=== PATIENT | female | born 1980 | race Caucasian/White ===

== ENCOUNTER → 2016-06-03 | Outpatient (CLI) | payer OTHER ==
[2016-06-03 17:53] LABS: MEAN CORPUSCULAR HEMOGLOBIN 31.9 pg (27.0-33.0); MEAN CORPUSCULAR HGB CONC 32.5 g/dl (32.0-36.5); MEAN CORPUSCULAR VOLUME 98.3 fl (80.0-96.0); PLATELET COUNT, AUTOMATED 166 k/mm3 (150-450); RED CELL DISTRIBUTION WIDTH 12.1 % (11.5-14.5)
[2016-06-03 21:12] LABS: BASOPHILS 1 % (0-4); EOSINOPHILS 7 % (0-5)
[2016-06-04 12:56] LABS: CONTROL LINE INT CTR LINE PRESENT; HIV SCRN NEGATIVE (NEGATIVE); HIV SCRN1 NEGATIVE (NEGATIVE)
[2016-06-05 10:16] LABS: HBsAg Prenatal NEGATIVE (NEGATIVE)
== END ==
LOC: M LRY 12:06
PROVIDERS: ATTEND Obstetrics & Gynecology
DX: Z34.81 Encounter for supervision of other normal pregnancy, first trimester (principal)

== ENCOUNTER → 2016-08-02 | Outpatient (CLI) | payer OTHER ==
[2016-08-02 17:46] LABS: CALCIUM LEVEL 8.2 MG/DL (8.5-10.1); THYROXINE (T4) 13.4 UG/DL (4.5-12.0)
== END ==
LOC: M LRY 11:33
PROVIDERS: ATTEND Advanced Practice Midwife
DX: O99.842 Bariatric surgery status complicating pregnancy, second trimester (principal); E03.9 Hypothyroidism, unspecified; Z13.79 Encounter for other screening for genetic and chromosomal anomalies; Z3A.00 Weeks of gestation of pregnancy not specified

== ENCOUNTER → 2016-08-13 | Outpatient (CLI) | payer OTHER ==
--- NOTE | 2016-08-13 17:01 | REP ---
Clinical: Anatomical evaluation. Comparison: None . Findings: Examination demonstrates a single live intrauterine in cephalic presentation. motion is identified by technologist. Placenta is noted anterior and grade with the zero without evidence for placenta previa or abruption. Amniotic fluid volume is normal. Cervix measures 4.5 cm in length and appears closed. No evidence for nuchal cord. Gestational age by LMP 19 weeks 2 days with DINORAH 01/05/2017 . Gestational age by current measurements 20 weeks 0 days with DINORAH 12/31/2016 . FHR equals 150 beats per minute. BPD 4.7 cm 20 weeks 2 days HC 17.0 cm 19 weeks 4 days AC 14.9 cm 20 weeks 1 day FL 3.2 cm 19 weeks 6 days HL 3.1 cm 20 weeks 2 days HC/AC ratio 1.14 Estimated weight 324 grams ( 72nd percentile). Anatomical assessment demonstrates normal structures including cranium, cavum, cerebellum/posterior fossa, facial features, lungs, four-chamber heart/ventricular outflow tracts, diaphragm, stomach, cord insertion/three-vessel cord, kidneys/bladder, spine, and extremities. A 2 mm left choroid plexus cyst identified along with echogenic focus in the left cardiac ventricle consistent with prominent chordae tendineae. Impression: 1. Single live intrauterine in cephalic presentation demonstrating appropriate interval growth. 2. Choroid plexus cyst and prominent chordae tendineae suggested and may warrant reevaluation and follow-up. Anatomical assessment is otherwise complete and normal. Signed by Mono Kay MD 08/13/2016 04:53 P
== END ==
LOC: M RAD 15:44
PROVIDERS: ATTEND Advanced Practice Midwife
DX: Z36 Encounter for antenatal screening of mother (principal); Z3A.20 20 weeks gestation of pregnancy

== ENCOUNTER → 2016-09-16 | Outpatient (CLI) | payer OTHER ==
[2016-09-16 19:27] LABS: BASO % 0.3 % (0.0-1.0); EOS # 0.2 K/mm3 (0.0-0.50); EOS % 1.6 % (0.0-3.0); LARGE UNSTAINED CELL # 0.1 K/mm3 (0.0-0.4); LARGE UNSTAINED CELL % 0.9 % (0.0-4.0); LYMPH # 1.7 K/mm3 (1.5-4.5); LYMPH % 14.7 % (24.0-44.0); MEAN CORPUSCULAR HEMOGLOBIN 33.2 pg (27.0-33.0); MEAN CORPUSCULAR HGB CONC 32.6 g/dl (32.0-36.5); MEAN CORPUSCULAR VOLUME 101.7 fl (80.0-96.0); MONO # 0.4 K/mm3 (0.0-0.8); MONO % 3.9 % (0.0-5.0); NEUTROPHILS # 8.6 K/mm3 (1.8-7.7); NEUTROPHILS % 78.5 % (36.0-66.0); PLATELET COUNT, AUTOMATED 222 k/mm3 (150-450); RED CELL DISTRIBUTION WIDTH 12.6 % (11.5-14.5)
== END ==
LOC: M LRY 12:01
PROVIDERS: ATTEND Advanced Practice Midwife
DX: Z34.83 Encounter for supervision of other normal pregnancy, third trimester (principal)
CPT/HCPCS: 36415; 84439; 84443; 85025; 86850; 86900; 86901; J2790

== ENCOUNTER → 2016-10-15 | Outpatient (CLI) | payer OTHER ==
[2016-10-15 13:28] LABS: BASO % 0.3 % (0.0-1.0); EOS # 0.2 K/mm3 (0.0-0.50); EOS % 1.9 % (0.0-3.0); LARGE UNSTAINED CELL # 0.2 K/mm3 (0.0-0.4); LARGE UNSTAINED CELL % 1.5 % (0.0-4.0); LYMPH # 1.7 K/mm3 (1.5-4.5); LYMPH % 14.5 % (24.0-44.0); MEAN CORPUSCULAR HEMOGLOBIN 33.1 pg (27.0-33.0); MEAN CORPUSCULAR HGB CONC 33.4 g/dl (32.0-36.5); MEAN CORPUSCULAR VOLUME 98.9 fl (80.0-96.0); MONO # 0.5 K/mm3 (0.0-0.8); MONO % 4.4 % (0.0-5.0); NEUTROPHILS # 9.1 K/mm3 (1.8-7.7); NEUTROPHILS % 77.4 % (36.0-66.0); PLATELET COUNT, AUTOMATED 230 k/mm3 (150-450)
[2016-10-16 07:05] LABS: WHITE BLOOD COUNT 11.7 K/mm3 (4.0-10.0)
== END ==
LOC: M LRY 12:06
PROVIDERS: ATTEND Specialist
DX: Z34.83 Encounter for supervision of other normal pregnancy, third trimester (principal)

== ENCOUNTER → 2016-11-07 | Outpatient (CLI) | payer OTHER ==
[2016-11-07 16:32] LABS: FREE T4 1.23 NG/DL (0.76-1.46)
== END ==
LOC: M LRY 11:59
PROVIDERS: ATTEND Advanced Practice Midwife
DX: Z34.82 Encounter for supervision of other normal pregnancy, second trimester (principal)

== ENCOUNTER → 2016-11-08 | Outpatient (CLI) | payer OTHER ==
--- NOTE | 2016-11-08 16:09 | REP ---
OB ULTRASOUND: Real-time sonographic evaluation of the gravid uterus is performed. There is a single living intrauterine gestation. The estimated gestational age is 31 weeks 5 days based on LMP with EDC 01/05/2017. Today's measurements indicate appropriate growth. BPD 81 mm = 32 weeks 3 days, at the 60th percentile. HC 308 mm = 34 weeks 3 days, at the 90th percentile. AC 269 mm = 31 weeks 0 day, at the 39th percentile. Femur length 61 mm = 31 weeks 5 days, at the 50th percentile. HC/AC ratio 1.15 within normal range. Estimated weight 1809 grams, 42nd percentile. Cervix is closed and measures 3.4 cm in length. heart rate 157 beats per minute. Amniotic fluid within normal limits. JHONATHAN 15.9 within normal range of 8.7-24.1. SD ratio 2.79 within normal range of 2.5-3.5. RI 0.64 within normal range of 0.59-0.75. Lateral ventricles, four chamber heart, stomach, cord insertion and three vessel cord are visualized and are grossly unremarkable. position vertex. Placenta is anterior and grade 2 with no previa or abruption. IMPRESSION: Appropriate growth as above. Signed by Scotty Fonseca MD 11/08/2016 04:47 P
== END ==
LOC: M RAD 15:14
PROVIDERS: ATTEND Advanced Practice Midwife
DX: Z36 Encounter for antenatal screening of mother (principal); Z3A.31 31 weeks gestation of pregnancy

== ENCOUNTER → 2016-12-03 | Outpatient (CLI) | payer OTHER ==
[~2016-12-03] MED LIST: COLA100C5 PO; IBUP1TAB7 PO; IMOD2TAB16 PO; LEVO200T4 PO; MILKSUS PO; PERCOCET PO; PRENTAB9 PO
[2016-12-03 15:42] LABS: MEAN CORPUSCULAR HEMOGLOBIN 31.9 pg (27.0-33.0); MEAN CORPUSCULAR HGB CONC 33.3 g/dl (32.0-36.5); MEAN CORPUSCULAR VOLUME 95.9 fl (80.0-96.0); RED CELL DISTRIBUTION WIDTH 12.9 % (11.5-14.5)
[2016-12-03 15:57] LABS: ALBUMIN 2.6 GM/DL (3.2-5.2); ALBUMIN/GLOBULIN RATIO 0.72 (1.00-1.93); ALKALINE PHOSPHATASE 152 U/L (45-117); ALT/SGPT 12 U/L (12-78); AMYLASE 51 U/L (25-115); AST/SGOT 14 U/L (15-37); BILIRUBIN,DIRECT < 0.1 MG/DL (0.0-0.2); BILIRUBIN,TOTAL 0.3 MG/DL (0.2-1.0); TOTAL PROTEIN 6.2 GM/DL (6.4-8.2)
--- NOTE | 2016-12-03 15:58 | REP ---
Abdominal right upper quadrant ultrasound for right upper quadrant pain. The patient is approximate 35 weeks gestation. heart rate is 139 beats per minute. There is no cholelithiasis, gallbladder wall thickening or pericholecystic fluid. There are a few mucosal folds in the gallbladder fundus. There is no intrahepatic or extrahepatic biliary duct dilatation. The common duct is 4 mm in diameter. The hepatic parenchyma is homogeneous. The pancreas is obscured by bowel. Bowel gas. The right kidney is normal size measuring 11.8 cm craniocaudad length. There is no right renal hydronephrosis, calculus, mass or cyst. Impression: Essentially negative abdominal right upper quadrant ultrasound. There is no hydronephrosis of the right kidney. There are a few mucosal folds incidentally identified in the gallbladder. Signed by Scotty Guallpa MD 12/03/2016 03:50 P
== END ==
LOC: M LAB 14:46
PROVIDERS: ATTEND Advanced Practice Midwife
DX: R10.11 Right upper quadrant pain (principal)

== ENCOUNTER 2016-12-06 22:28 | Emergency (ER) | payer OTHER ==
[~2016-12-06] VITALS: Ht 167.6 cm; Wt 75.9 kg
[2016-12-06 22:30] VITALS: BP 122/74
[2016-12-06] MEDS ORDERED: LEVO200T4 PO (22:40)
== END 2016-12-07 01:00 | disposition left against medical advice (07) ==
LOC: M ED 22:28
DX: L98.9 Disorder of the skin and subcutaneous tissue, unspecified (principal)

== ENCOUNTER → 2016-12-08 | Outpatient (REF) | payer OTHER | LOC: M SFHCLERA 14:55 | PROVIDERS: ATTEND Physician Assistant | DX: L02.31 Cutaneous abscess of buttock (principal) ==

== ENCOUNTER → 2016-12-10 | Outpatient (REF) | payer OTHER | LOC: M LAB REF 12:51 | PROVIDERS: ATTEND Obstetrics & Gynecology | DX: Z34.83 Encounter for supervision of other normal pregnancy, third trimester (principal) ==

== ENCOUNTER → 2016-12-16 | Outpatient (CLI) | payer OTHER ==
[2016-12-16 18:01] LABS: FREE T4 1.38 NG/DL (0.76-1.46)
== END ==
LOC: M LRY 11:58
PROVIDERS: ATTEND Obstetrics & Gynecology
DX: Z34.83 Encounter for supervision of other normal pregnancy, third trimester (principal)

== ENCOUNTER 2016-12-24 11:41 | Outpatient (CLI) | payer OTHER ==
[~2016-12-24] VITALS: Ht 167.6 cm; Wt 75.0 kg
[~2016-12-24 11:41] MED LIST changes: -COLA100C5 PO; -IBUP1TAB7 PO; -IMOD2TAB16 PO; -MILKSUS PO; -PERCOCET PO; -PRENTAB9 PO
[2016-12-24 11:58] VITALS: BP 107/54
[2016-12-24] MEDS ORDERED: NS 1,000 ML IV ONE (12:15)
[2016-12-24] MEDS ORDERED: PRENTAB9 PO (12:39)
[2016-12-24 12:48] LABS: BASO % 0.3 % (0.0-1.0); EOS # 0.1 K/mm3 (0.0-0.50); EOS % 1.2 % (0.0-3.0); LARGE UNSTAINED CELL # 0.1 K/mm3 (0.0-0.4); LARGE UNSTAINED CELL % 0.7 % (0.0-4.0); MEAN CORPUSCULAR HEMOGLOBIN 32.3 pg (27.0-33.0); MEAN CORPUSCULAR HGB CONC 34.3 g/dl (32.0-36.5); MEAN CORPUSCULAR VOLUME 94.1 fl (80.0-96.0); MONO # 0.5 K/mm3 (0.0-0.8); MONO % 4.6 % (0.0-5.0); NEUTROPHILS # 9.2 K/mm3 (1.8-7.7); NEUTROPHILS % 77.3 % (36.0-66.0); PLATELET COUNT, AUTOMATED 228 k/mm3 (150-450); RED CELL DISTRIBUTION WIDTH 13.2 % (11.5-14.5); WHITE BLOOD COUNT 11.9 K/mm3 (4.0-10.0)
[2016-12-24 14:02] VITALS: BP 108/61
[2016-12-24 14:08] LABS: ALBUMIN 2.5 GM/DL (3.2-5.2); ALBUMIN/GLOBULIN RATIO 0.58 (1.00-1.93); ALKALINE PHOSPHATASE 156 U/L (45-117); ALT/SGPT 17 U/L (12-78); AMYLASE 48 U/L (25-115); ANION GAP 8 MEQ/L (8-16); AST/SGOT 49 U/L (15-37); BILIRUBIN,TOTAL 0.4 MG/DL (0.2-1.0); BLOOD UREA NITROGEN 7 MG/DL (7-18); CALCIUM LEVEL 8.2 MG/DL (8.5-10.1); CARBON DIOXIDE LEVEL 21 MEQ/L (21-32); CHLORIDE LEVEL 108 MEQ/L (98-107); GLOMERULAR FILTRATION RATE > 60.0 (>60); GLUCOSE, FASTING 66 MG/DL (70-105); POTASSIUM SERUM 4.8 MEQ/L (3.5-5.1); SODIUM LEVEL 137 MEQ/L (136-145); TOTAL PROTEIN 6.8 GM/DL (6.4-8.2)
[2016-12-24] MEDS ORDERED: IMOD2TAB16 PO (16:48)
== END 2016-12-24 17:15 | disposition home or self-care (01) ==
LOC: M LDO 11:41
PROVIDERS: ATTEND Obstetrics & Gynecology
DX: O99.89 Other specified diseases and conditions complicating pregnancy, childbirth and the puerperium (principal); O21.9 Vomiting of pregnancy, unspecified; Z3A.38 38 weeks gestation of pregnancy; E03.9 Hypothyroidism, unspecified; O99.283 Endocrine, nutritional and metabolic diseases complicating pregnancy, third trimester; O99.843 Bariatric surgery status complicating pregnancy, third trimester

== ENCOUNTER 2016-12-29 08:59 | Inpatient (IN) | payer OTHER ==
[~2016-12-29] VITALS: Ht 167.6 cm; Wt 69.0 kg
[2016-12-29] VITALS (28 sets, daily range): BP systolic 89–122; BP diastolic 53–73
[~2016-12-29 08:59] MED LIST changes: +IMOD2TAB16 PO; +LEVOTHYROXINE 100MCG TABLET (0.1MG) PO SCH; +PRENTAB9 PO
[2016-12-29] MEDS ORDERED: LR 1,000 ML IV SCH (09:44)
[2016-12-29] MEDS ORDERED: LACTATED RINGER'S 1000 ML IV STA ×2 (09:44→15:49)
[2016-12-29] MEDS ORDERED: OXYTOCIN DRIP 30 UNITS in APPROPRIATE DILUENT 1 EA IV SCH (09:45)
[2016-12-29 10:53] LABS: MEAN CORPUSCULAR HEMOGLOBIN 32.3 pg (27.0-33.0); MEAN CORPUSCULAR HGB CONC 34.1 g/dl (32.0-36.5); MEAN CORPUSCULAR VOLUME 94.6 fl (80.0-96.0); RED CELL DISTRIBUTION WIDTH 13.2 % (11.5-14.5); WHITE BLOOD COUNT 7.8 K/mm3 (4.0-10.0)
[2016-12-29 11:25] LABS: FREE T4 1.22 NG/DL (0.76-1.46)
[2016-12-29] MEDS ORDERED: FENTANYL 2MCG/ML ROPIVACAINE 0.2% IN 0.9% NACL 200ML IVBAG As Ordered ONE (13:10)
[2016-12-29] MEDS ORDERED: diphenhydrAMINE INJ 50MG/ML VIAL (J1200) IV PRN ×2 (14:15→20:00)
[2016-12-29] MEDS ORDERED: FENTANYL/ROPIVACAINE/NACL BAG 200 ML EPIDURAL SCH (14:15)
[2016-12-29] MEDS ORDERED: EPIDURAL COMMENT XX SCH (14:15)
[2016-12-29] MEDS ORDERED: LACTATED RINGER'S 1000 ML IV PRN (14:15)
[2016-12-29] MEDS ORDERED: ePHEDrine SULFATE 25 MG/5 ML(5MG/ML) SYRINGE IV PRN (14:15)
[2016-12-29] MEDS ORDERED: ONDANSETRON 4MG/2ML VIAL (J2405) IV PRN ×3 (14:15→17:30)
[2016-12-29] MEDS ORDERED: EPIDURAL/PCA KEYS XX PRN (14:15)
[2016-12-29] MEDS ORDERED: REFRIGERATOR IV KEYS XX PRN (14:15)
[2016-12-29] MEDS ORDERED: NALOXONE INJ 0.4 MG/1 ML VIAL (J2310) IV PRN ×3 (14:15→17:00)
[2016-12-29] MEDS ORDERED: BICITRA 30ML SOLN UDC As Ordered ONE (15:49)
[2016-12-29] MEDS ORDERED: ceFAZolin 2 GM/D5W 50 ML IV BAG (J0690) As Ordered ONE (15:51)
[2016-12-29] MEDS ORDERED: BICITRA 30ML SOLN UDC PO ONE (16:00)
[2016-12-29] MEDS ORDERED: MORPHINE PRES-FREE INJ 10 MG/10 ML VIAL (J2274) As Ordered ONE (16:20)
[2016-12-29] MEDS ORDERED: OXYTOCIN INJ 10 UNITS/ML VIAL (J2590) As Ordered ONE (16:20)
[2016-12-29] MEDS ORDERED: ePHEDrine SULFATE 25 MG/5 ML(5MG/ML) SYRINGE As Ordered ONE (16:28)
[2016-12-29] MEDS ORDERED: ONDANSETRON 4MG/2ML VIAL (J2405) As Ordered ONE (16:28)
[2016-12-29] MEDS ORDERED: KETOROLAC 60 MG/2 ML VIAL (J1885) As Ordered ONE (16:32)
[2016-12-29 16:35] LABS: CORD GAS ABE V -3.9; CORD GAS HCO3 V 21.9 MEQ/L; CORD GAS O2 SAT V 46.1 %; CORD GAS PCO2 V 42.4 mmHg; CORD GAS PH V 7.33 UNITS; CORD GAS PO2 V 19.7 mmHg; CORD GAS TCO2 V 23.2 MEQ/L
[2016-12-29 16:35] LABS: CORD GAS HCO3 A 24.9 MEQ/L; CORD GAS O2 SAT A 32.1 %; CORD GAS PCO2 A 50.5 mmHg; CORD GAS PH A 7.31 UNITS; CORD GAS SBC A 21.2 MEQ/L; CORD GAS TCO2 A 26.4 MEQ/L
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
[2016-12-29] MEDS ORDERED: NALBUPHINE HCL 10 MG/ML AMP (J2300) IV PRN ×2 (17:00→17:30)
[2016-12-29] MEDS ORDERED: METOCLOPRAMIDE INJ 10MG/2ML VIAL (J2765) IV PRN ×2 (17:00→17:30)
[2016-12-29] MEDS ORDERED: IBUP1TAB7 PO (17:08)
[2016-12-29] MEDS ORDERED: PERCOCET PO (17:09)
[2016-12-29] MEDS ORDERED: OXYTOCIN DRIP 30 UNITS in APPROPRIATE DILUENT 1 EA IV ONE (17:15)
[2016-12-29] MEDS ORDERED: MOM 30ML SUSPENSION UDC PO PRN (17:15)
[2016-12-29] MEDS ORDERED: MEASLES,MUMPS,RUBELLA VACCINE INJ (MMR-II) (90707) SC SCH (17:15)
[2016-12-29] MEDS ORDERED: PERCOCET 5MG/325MG TAB PO PRN ×2 (17:15→17:30)
[2016-12-29] MEDS ORDERED: DOCUSATE SODIUM 100 MG CAP PO PRN (17:15)
[2016-12-29] MEDS ORDERED: RHOGAM 300 MCG (1500 IU) INJ (J2790) IM SCH (17:15)
[2016-12-29] MEDS ORDERED: fentaNYL 100 MCG/2 ML INJECTION (J3010) IV PRN (17:30)
[2016-12-29] MEDS ORDERED: MEPERIDINE INJ 25 MG/ML VIAL (J2175) IV PRN (17:30)
[2016-12-29] MEDS: LR 1,000 ML IV SCH (18:53)
[2016-12-29] MEDS: KETOROLAC 30 MG/ML VIAL (J1885) IV SCH (23:06)
[2016-12-30] MEDS ORDERED: LACTATED RINGER'S 1000 ML IV ONE (00:15)
[2016-12-30] MEDS: LR 1,000 ML IV SCH ×2 (01:02→06:14)
[2016-12-30 02:05] VITALS: BP 105/51
[2016-12-30] MEDS: KETOROLAC 30 MG/ML VIAL (J1885) IV SCH ×3 (05:05→17:00)
--- NOTE | 2016-12-30 05:27 | RO ---
DATE OF PROCEDURE: 12/29/2016 PREOPERATIVE DIAGNOSES: 1. Inability to augment labor. 2. Nonreassuring heart tracing. POSTOPERATIVE DIAGNOSES: 1. Inability to augment labor. 2. Nonreassuring heart tracing. PROCEDURE PERFORMED: Primary lower transverse section. SURGEON: Abi Trinidad MD ASSISTANTS: Esperanza Saldaña CNM ANESTHESIA: Epidural. ESTIMATED BLOOD LOSS: 500 mL. INTRAVENOUS FLUIDS: 1100 mL of lactated Ringer solution. URINE OUTPUT: 100 mL. SPECIMENS: Cord blood. PREOPERATIVE ANTIBIOTICS: 2 grams of Ancef. OPERATIVE FINDINGS: Liveborn male infant. score 9 and 9. Weight was 2798 grams or 6 pounds 3 ounces. Cord gases 7.3, 7.33, base excess -2, -3.9. INDICATION FOR OPERATION: This patient is a 36-year-old, 3, para 1, who presents at 40+ plus for induction of labor. Her intrapartum course is significant for a nonreassuring heart rate tracing with repetitive late decelerations during her induction. Pitocin was initially discontinued, her position was changed, Oxygen was applied and fluid bolus was given heart rate recovered with a cat 1 tracing. After approximately 1-1/ 2 hours, pitocin was once again started, and once again patient started to experience repetitive late decelerations, loss of variability. At which time, decision was made to proceed with a primary lower transverse section for nonreassuring heart tracing and inability augment labor. DESCRIPTION OF OPERATION: After informed consent was obtained and written consent was reviewed, the patient was brought to the operating room where she was prepped and draped in a normal sterile fashion. A Nuñez catheter had been placed prior and was set to gravity. A time-out was performed in the operating room to identify the patient, procedure to be performed, as well as drug allergies. Anesthesia was tested and deemed to be adequate. A Pfannenstiel skin incision was then made and carried down to underlying rectus fascia. The fascia was scored and this incision was extended bilaterally. The fascia was then dissected off the underlying rectus muscles both superiorly and inferiorly. The rectus muscles were then in the midline. The peritoneum was then entered. The vesicouterine peritoneum was then tented and excised to create a bladder flap. The bladder blade was then placed to retract back the bladder. A curvilinear incision was then made in the lower uterine segment. Uterine incision was then extended. Amniotomy was then performed productive of clear fluid. breech was brought to the level of the incision atraumatically, followed by delivery of shoulder and corpus. Cord was clamped times two and was taken over to warmer with good cry where Dr. Hall, huc waited. Cord blood and gases were then obtained. Placenta was then drained and delivered grossly intact. The uterus was exteriorized and cleared of all clots and debris. The uterine incision was then closed in two layers using #0 Vicryl, first layer in a running locking fashion, followed by a second layer for imbrication in a running nonlocking fashion. The abdomen was then suctioned. The uterus was then re-inspected and noted to be hemostatic. Uterus was returned to the patient's abdomen, once again inspected and noted to be hemostatic. The anterior peritoneum was then reapproximated with #3-0 Vicryl. Rectus muscles were then reapproximated using #3-0 Vicryl. The fascia was then closed using #0 Vicryl in a running nonlocking fashion. The subcutaneous tissue was then irrigated and suctioned. Subcutaneous tissue was then reapproximated with #3-0 Vicryl. Several subdermal stitches were placed with #3-0 Vicryl and the skin was closed with #4-0 Monocryl in a subcuticular fashion. The incision was then cleaned and dry. Mastisol was applied above and below the incision. The incision was then dressed. The patient was then taken to recovery in stable condition. Counts were correct. MTDD
[2016-12-30 06:33] VITALS: BP 106/54
[2016-12-30 07:29] LABS: MEAN CORPUSCULAR HEMOGLOBIN 32.2 pg (27.0-33.0); MEAN CORPUSCULAR HGB CONC 33.8 g/dl (32.0-36.5); MEAN CORPUSCULAR VOLUME 95.3 fl (80.0-96.0); RED CELL DISTRIBUTION WIDTH 13.3 % (11.5-14.5); WHITE BLOOD COUNT 9.4 K/mm3 (4.0-10.0)
[2016-12-30] MEDS: PRENATAL VITAMINS CHEWABLE TABLET PO SCH (08:47)
[2016-12-30 10:00] VITALS: BP 128/65
[2016-12-30] MEDS ORDERED: SLF 3 ML SYR IV PRN (11:45)
[2016-12-30] MEDS: SLF 3 ML SYR IV SCH ×2 (13:53→20:26)
[2016-12-30 14:00] VITALS: BP 113/58
[2016-12-30 18:08] VITALS: BP 107/62
[2016-12-30 22:19] VITALS: BP 107/62
[2016-12-30] MEDS: PERCOCET 5MG/325MG TAB PO PRN (22:44)
[2016-12-31] MEDS: IBUPROFEN 800 MG TAB PO SCH ×2 (01:00→07:51)
[2016-12-31] MEDS: SLF 3 ML SYR IV SCH (05:30)
[2016-12-31] MEDS: PERCOCET 5MG/325MG TAB PO PRN (05:30)
[2016-12-31 05:36] VITALS: BP 133/62
[2016-12-31] MEDS: PRENATAL VITAMINS CHEWABLE TABLET PO SCH (07:51)
[2016-12-31] MEDS ORDERED: COLA100C5 PO (08:34)
[2016-12-31] MEDS ORDERED: MILKSUS PO (08:34)
--- NOTE | 2017-01-31 20:56 | DSES ---
DATE OF ADMISSION: DATE OF DISCHARGE: 12/31/2016 DISCHARGE DIAGNOSIS: Primary section for inability to augment labor. PROCEDURE PERFORMED WHILE IN THE HOSPITAL: 1. Epidural. 2. Low transverse section. DISCHARGE CONDITION: Stable. HISTORY AND HOSPITAL COURSE: This patient is a 36-year-old 3, para 1, who presented at 40+ weeks for induction of labor. Her antepartum course has been significant for nonreassuring tracing with repetitive late decelerations during induction, unable to augment her labor, and subsequently had a primary section that was productive of a liveborn male infant, scores of 9 and 9, weight was 2798 grams, 6 pounds 3 ounces. Cord gas 7.3, base excess -2 and -3.9. The patient did well postoperatively. By postoperative day number 2, had met all discharge criteria and was discharged home in stable condition. DISCHARGE MEDICATIONS: - ibuprofen - Percocet DISCHARGE INSTRUCTIONS: She is instructed to followup in 2 weeks for an incision check. Report severe pain, heavy vaginal bleeding, fevers or issues. Remain on pelvic rest.
== END 2016-12-31 10:50 | disposition home or self-care (01) | DRG 540 ==
LOC: M LDI 08:59 → M OBS 18:32
PROVIDERS: ADMIT Advanced Practice Midwife; ATTEND Advanced Practice Midwife
PROC: 3E033VJ Introduction of Other Hormone into Peripheral Vein, Percutaneous Approach (ICD-10-PCS; 2016-12-29)
PROC: 10D00Z1 Extraction of Products of Conception, Low, Open Approach (ICD-10-PCS; principal; 2016-12-29 16:12)
DX: O99.284 Endocrine, nutritional and metabolic diseases complicating childbirth (principal); E03.9 Hypothyroidism, unspecified; Z37.0 Single live birth; Z3A.39 39 weeks gestation of pregnancy; F17.210 Nicotine dependence, cigarettes, uncomplicated; O09.523 Supervision of elderly multigravida, third trimester; R19.7 Diarrhea, unspecified; O76 Abnormality in fetal heart rate and rhythm complicating labor and delivery; O99.334 Smoking (tobacco) complicating childbirth; O99.844 Bariatric surgery status complicating childbirth

== ENCOUNTER → 2017-08-14 | Outpatient (REF) | payer OTHER | LOC: M SFHCLERA 13:00 | DX: L02.31 Cutaneous abscess of buttock (principal) ==